=== PATIENT | female | born 1995 | race Caucasian/White ===

== ENCOUNTER → 2016-07-07 | Outpatient (CLI) | payer OTHER ==
--- NOTE | 2016-07-07 11:31 | US ---
EXAMINATION TYPE: US gallbladder DATE OF EXAM: 07/07/2016 10:26 AM COMPARISON: No previous CLINICAL HISTORY: R10.11 RUQ Pain. Indigestion, nausea, RUQ tenderness EXAM MEASUREMENTS: Liver Length: 12.2 cm Gallbladder Wall: 0.2 cm CBD: 0.3 cm Right Kidney: 12.3 x 4.1 x 4.9 cm TECHNOLOGIST IMPRESSION: Pancreas: wnl Liver: wnl Gallbladder: wnl Evidence for sonographic Silva's sign: no CBD: wnl Right Kidney: Minimal hydronephrosis may be present on the right. No ascites. IMPRESSION: May be some minimal hydronephrosis on the right.
== END | disposition home or self-care (01) ==
LOC: RADUSWWP 09:59
PROVIDERS: ATTEND Family Medicine
DX: R10.11 Right upper quadrant pain (principal)
CPT/HCPCS: 76705

== ENCOUNTER → 2016-07-19 | Outpatient (CLI) | payer OTHER ==
--- NOTE | 2016-07-19 16:56 | CT ---
EXAMINATION TYPE: CT abdomen pelvis wo con DATE OF EXAM: 07/19/2016 4:45 PM HISTORY: Pt states of abdominal pain and reflux x2 months per patient. Hydronephrosis and right upper quadrant pain per order. CT DLP: 612 mGycm. Automated Exposure Control for Dose Reduction was Utilized. TECHNIQUE: CT scan of the abdomen and pelvis is performed without oral or IV contrast. COMPARISON: NONE FINDINGS: Within the limitations of a non-contrast study, the following observations are made. LUNG BASES: No significant abnormality is appreciated. LIVER/GB: No significant abnormality is appreciated. PANCREAS: No significant abnormality is seen. SPLEEN: No significant abnormality is seen. ADRENALS: No significant abnormality is seen. KIDNEYS: No renal stones or hydronephrosis is evident bilaterally. BOWEL: Evaluation of the bowel is suboptimal due to lack of enteric contrast and patient having very little intra-abdominal fat. There is no suspicious small or large bowel dilatation seen. Cecum is lianet ewhat low lying. No inflammatory change at base of cecum is noted. GENITAL ORGANS: Uterus is retroverted in shape and within normal limits in size. There is some deviat ion of the endometrial horns suggesting arcuate type uterus towards the fundus. Consider ultrasound c orrelation. LYMPH NODES: No greater than 1cm abdominal or pelvic lymph nodes are appreciated. OSSEOUS STRUCTURES: No significant abnormality is seen. OTHER: No significant additional abnormality is seen. IMPRESSION: No significant finding is seen to account for patient's symptoms.
--- NOTE | 2016-07-20 08:41 | NM ---
EXAMINATION TYPE: NM hepatobiliary w EF DATE OF EXAM: 07/19/2016 5:25 PM COMPARISON: Correlation ultrasound 07/07/2016 HISTORY: 21-year-old female hydronephrosis, right upper quadrant pain TECHNIQUE: After the intravenous administration of 5 mCi Tc 99m Mebrofenin, hepatobiliary scintigraph y is performed. Immediate images post injection. FINDINGS: There is satisfactory initial accumulation of tracer by the liver. The gallbladder is visualized wit hin 6 minutes. The small bowel activity is noted within 28 minutes. At one hour 8 ounces of oral en sure plus is given to mimic CCK and gallbladder ejection fraction is calculated at 71 %, in the aj l range. Therefore there is no scintigraphic evidence of cystic or common bile duct obstruction to s uggest acute cholecystitis or gallbladder dyskinesia. IMPRESSION: No scintigraphic evidence for acute/chronic cholecystitis or biliary dyskinesia.
== END | disposition home or self-care (01) ==
LOC: RADNMMAIN 15:05
PROVIDERS: ATTEND Family Medicine
DX: N13.30 Unspecified hydronephrosis (principal); R10.11 Right upper quadrant pain
CPT/HCPCS: 74176; 78226; A9537

== ENCOUNTER → 2021-10-09 | Outpatient (CLI) | payer OTHER ==
[2021-10-09 14:59] LABS: Basophils # (A) 0.05 X 10*3/uL (0.00-0.10); Basophils % (A) 0.9 %; Eosinophils # (A) 0.08 X 10*3/uL (0.04-0.35); Eosinophils % (A) 1.5 %; HCT 41.5 % (37.2-46.3); HGB 13.3 g/dL (12.0-15.0); Immature Grans, Automated 0.6 %; Lymphocytes # (A) 1.41 X 10*3/uL (0.90-5.00); Lymphocytes % (A) 26.1 %; MCV 96.7 fL (80.0-97.0); Monocytes # (A) 0.59 X 10*3/uL (0.20-1.00); Monocytes % (A) 10.9 %; NRBC Per 100 WBC 0 /100 WBCS (0.0-0.0); Neutrophils # (A) 3.24 X 10*3/uL (1.80-7.70); Platelet Count 209 X 10*3/uL (140-440); RBC 4.29 X 10*6/uL (4.10-5.20); RDW 12.4 % (11.5-14.5)
[2021-10-09 18:37] LABS: African American GFR (CKD) 139.8 (60.0-200.0); Albumin 4.6 g/dL (3.8-4.9); Albumin/Globulin Ratio 1.74 (1.60-3.17); Anion Gap 9.3 mmol/L (10.00-18.00); BUN/Creat Ratio 17.28 Ratio (12.00-20.00); Blood Urea Nitrogen 11.3 mg/dL (9.0-27.0); Calcium 9.4 mg/dL (8.7-10.3); Carbon Dioxide 26.2 mmol/L (20.0-27.5); Globulin 2.7 g/dL (1.6-3.3); Non-African American GFR(CKD) 120.6 (60.0-200.0); Potassium 4.1 mmol/L (3.5-5.5); Total Bilirubin 0.8 mg/dL (0.30-1.20); Total Protein 7.3 g/dL (6.2-8.2)
== END | disposition home or self-care (01) ==
LOC: LABWHC1 11:12
PROVIDERS: ATTEND Internal Medicine
DX: R21 Rash and other nonspecific skin eruption (principal)
CPT/HCPCS: 36415; 80053; 84443; 85025; 86038